=== PATIENT | male | born 1945 | race Hispanic/Latino ===

== ENCOUNTER 2017-10-05 09:30 | Day surgery (SDC) | payer OTHER ==
[2017-10-03 15:59] VITALS: BP 111/60
[2017-10-03 15:59] LABS: BASOPHILS % (AUTO) 0.8 % (0.0-5.0); EOSINOPHILS % (AUTO) 3.2 % (0.0-8.0); LYMPHOCYTES % (AUTO) 29.5 % (21.0-51.0); MEAN CORPUSCULAR HEMOGLOBIN 32.1 pg (27.0-33.0); MEAN CORPUSCULAR HGB CONC 33.1 g/dL (32.0-36.0); MONOCYTES % (AUTO) 8.5 % (3.0-13.0); PLATELET COUNT (AUTO) 240 K/uL (130-400); RED BLOOD CELL COUNT(AUTO) 4.53 MIL/uL (4.50-6.20); RED CELL DISTRIBUTION WIDTH 14.4 % (11.0-15.5); WHITE BLOOD COUNT (AUTO) 5.5 K/uL (4.8-10.8)
[2017-10-03 16:10] LABS: CREATININE 1.1 mg/dL (0.5-1.5); POTASSIUM 4.9 mmol/L (3.5-5.1)
[2017-10-03 16:13] LABS: INR 1.04 (0.85-1.15); PARTIAL THROMBOPLASTIN TIME 27.3 SEC (26.3-35.5); PROTHROMBIN TIME 10.9 SEC (9.6-11.6)
[2017-10-05] VITALS (15 sets, daily range): BP systolic 114–141; BP diastolic 70–82
[~2017-10-05] VITALS: Ht 172.7 cm; Wt 79.8 kg
[~2017-10-05 09:30] MED LIST: AEC81 PO; ALBU6.7H IH; ATOR40TA69 PO; BUDE10.2 IH; CEFUROXIME SODIUM 1.5 GM VIAL IVP SCH; FURO20TA4 PO; GLIP5TAB11 PO; METO-408 PO; TIOT4MIS5 IH; WATER FOR INJECTION,STERILE 20 ML VIAL IJ SCH
[2017-10-05] MEDS ORDERED: SODIUM CHLORIDE 0.9% 1000ML 1,000 ML IV ONE (10:56)
[2017-10-05] MEDS ORDERED: CEPH500T PO (12:04)
[2017-10-05] MEDS ORDERED: MIDAZOLAM HCL 1 MG/ML 2ML VIAL ONE (13:12)
[2017-10-05] MEDS ORDERED: FENTANYL CITRATE PF 50 MCG/1 ML 2ML VIAL ONE (13:12)
[2017-10-05] MEDS ORDERED: BUPIVACAINE/PF 0.5% 30ML VIAL ONE (13:14)
[2017-10-05] MEDS ORDERED: EPHEDRINE SULFATE 50 MG/ML AMPULE ONE (13:48)
[2017-10-05] MEDS ORDERED: LIDOCAINE HCL 1% 20 ML VIAL ONE (13:54)
== END 2017-10-05 16:15 | disposition home or self-care (01) ==
LOC: DAH 09:30 → SUH 09:30
PROVIDERS: ATTEND Thoracic Surgery (Cardiothoracic Vascular Surgery)
DX: Z47.2 Encounter for removal of internal fixation device (principal); I25.10 Atherosclerotic heart disease of native coronary artery without angina pectoris; I10 Essential (primary) hypertension; E11.9 Type 2 diabetes mellitus without complications; J44.9 Chronic obstructive pulmonary disease, unspecified; I73.9 Peripheral vascular disease, unspecified; Z79.82 Long term (current) use of aspirin; Z88.8 Allergy status to other drugs, medicaments and biological substances; F17.210 Nicotine dependence, cigarettes, uncomplicated; Z98.890 Other specified postprocedural states; Z98.61 Coronary angioplasty status
CPT/HCPCS: 20680; 36415; 71010; 80048; 82948 ×2; 85025; 85610; 85730; 86850; 86900; 86901; 86922; 88300; 93005; A6219; J0697; J2250; J3010; J3490 ×2; J7030

== ENCOUNTER → 2020-07-10 | Outpatient (CLI) | payer OTHER ==
[~2020-07-10] MED LIST changes: -ALBU6.7H IH; +ALBU6.7H9 IH; -CEFUROXIME SODIUM 1.5 GM VIAL IVP SCH; +CEPH500T PO; -WATER FOR INJECTION,STERILE 20 ML VIAL IJ SCH
== END | disposition home or self-care (01) ==
LOC: SHCH 10:26
PROVIDERS: ATTEND Internal Medicine Cardiovascular Disease
DX: I34.0 Nonrheumatic mitral (valve) insufficiency (principal); R06.00 Dyspnea, unspecified; I51.7 Cardiomegaly
CPT/HCPCS: 93306; 93356

== ENCOUNTER 2020-09-16 07:16 | Day surgery (SDC) | payer OTHER ==
[2020-09-12 14:40] VITALS: BP 111/57
[2020-09-12 14:56] LABS: BASOPHILS % (AUTO) 0.7 % (0.0-5.0); EOSINOPHILS % (AUTO) 2.6 % (0.0-8.0); HEMATOCRIT 41.4 % (42-54); LYMPHOCYTES % (AUTO) 28.5 % (21.0-51.0); MEAN CORPUSCULAR HEMOGLOBIN 31.6 pg (27.0-33.0); MEAN CORPUSCULAR HGB CONC 32.9 g/dL (32.0-36.0); MEAN CORPUSCULAR VOLUME 96.1 fL (79-99); MONOCYTES % (AUTO) 8.4 % (3.0-13.0); NEUTROPHILS % (AUTO) 59.5 % (40.0-77.0); PLATELET COUNT (AUTO) 259 K/uL (130-400); RED BLOOD CELL COUNT(AUTO) 4.31 MIL/uL (4.50-6.20); RED CELL DISTRIBUTION WIDTH 13.5 % (11.0-15.5); WHITE BLOOD COUNT (AUTO) 7.2 K/uL (4.8-10.8)
[2020-09-12 15:04] LABS: CREATININE 0.9 mg/dL (0.5-1.5); POTASSIUM 4.5 mmol/L (3.5-5.1)
[2020-09-12 15:08] LABS: INR 0.96 (0.85-1.15); PARTIAL THROMBOPLASTIN TIME 25.7 SEC (26.3-35.5); PROTHROMBIN TIME 10.4 SEC (9.6-11.6)
[2020-09-16] VITALS (11 sets, daily range): BP systolic 96–119; BP diastolic 51–67
[~2020-09-16] VITALS: Ht 175.3 cm; Wt 71.6 kg
[~2020-09-16 07:16] MED LIST changes: +AMLO-257 PO; +AUD IH; -CEPH500T PO; +CLOP75TA32 PO; -FURO20TA4 PO; +METF-446 PO
[2020-09-16] MEDS ORDERED: SODIUM CHLORIDE 0.9% 1000ML 1,000 ML IV SCH (08:00)
[2020-09-16] MEDS ORDERED: OLOD4MIS2 IH (09:46)
[2020-09-16] MEDS ORDERED: MOME13HF2 IH (09:46)
[2020-09-16] MEDS ORDERED: ALBUHFA IH (09:47)
[2020-09-16] MEDS ORDERED: MIDAZOLAM HCL 1 MG/ML 2ML VIAL ONE ×2 (12:37→13:19)
[2020-09-16] MEDS ORDERED: BUPIVACAINE/PF 0.25% 30ML VIAL IJ ONE (12:37)
[2020-09-16] MEDS ORDERED: MEPERIDINE-PF 25 MG/ML SYG ONE ×2 (12:37→13:19)
[2020-09-16] MEDS ORDERED: CEFAZOLIN SODIUM 1 GM VIAL ONE (12:37)
[2020-09-16] MEDS ORDERED: LIDOCAINE HCL 1% MDV 50ML VIAL ONE (12:38)
[2020-09-16] MEDS ORDERED: ACETAMINOPHEN-CODEINE 300/30MG TAB PO PRN (14:15)
[2020-09-16] MEDS ORDERED: DEXTROSE 50%-WATER 50 ML DISP.SYRIN IV PRN (14:15)
--- NOTE | 2020-09-16 14:40 | NUR ---
Pt received Pt received from clinical laboratory science professor via bed accompanied by PETER Borges. Pt awake and alert with pressure dressing applied to left upper chest area dry and intact; no bleeding no hematoma notes. Denies any pain. Orders reviewed. Ice pack applied to site as ordered. at bedside. questioning monitoring device. ear mold laboratory technician was called and [employer] rep Kaur came in to speak to pt and . Dietary tray ordered. Call light left within reach. Will continue to monitor
--- NOTE | 2020-09-16 15:40 | NUR ---
Pt assessed Pt sleeping comfortably at this time. Continues with sling to left arm with ice pack to left upper chest area. Has pressure dressing in place; no bleeding no hematoma noted to area. continues at bedside. VS wnl.
[2020-09-16] MEDS ORDERED: INSULIN HUMULIN R 100 UNIT/ML 3ML SQ SCH (16:30)
--- NOTE | 2020-09-16 16:48 | NUR ---
Pt resting Pt resting comfortably. Continues with left arm in sling with dressing dry and intact. is at side. Ice pack continues to surgical site. Pt denies any pain. Sleeps at intervals. VS wnl. Call light within reach.
[2020-09-16] MEDS ORDERED: CEFAZOLIN SODIUM 1 GM VIAL IVP ONE (19:00)
--- NOTE | 2020-09-16 19:19 | NUR ---
Med adm. Pt awake and alert in bed; states no pain; feeling fine, wanting to go home. at bedside. Ice pack removed. Continues with sling to left arm and pressure dressing in place dry and intact. No bleeding, no hematoma noted. Ancef 1gm IV infused; pt tolerated well with no adverse reactions. Awaiting radiology for chest xray.
--- NOTE | 2020-09-16 21:45 | NUR ---
Pt discharged home, tolerating fluids/solids, ambulating at baseline, denies any severe pain, nausea or dizziness. Pressure dressing to left chest removed. Dressing remains clean, dry and intact with very minimal light red blood on gauze. Pt reminded to leave opsite dressing in place until seen at MD office visit. Pt assisted in dressing and demonstrated how to apply sling. Pt reminded not to lift left arm above shoulder level. Pt and spouse report no further questions at this time. Addendum: 09/16/20 at 2226 by JAIME TAM RN RN Please noted that prior to discharging pt home, x-ray report was faxed from radiology and no pneumothorax or any other abnormal results related to the AICD insertion were noted.
== END 2020-09-16 21:45 | disposition home or self-care (01) ==
LOC: DAH 07:16
PROVIDERS: ATTEND Internal Medicine Cardiovascular Disease
DX: I25.5 Ischemic cardiomyopathy (principal); I11.0 Hypertensive heart disease with heart failure; I50.42 Chronic combined systolic (congestive) and diastolic (congestive) heart failure; E78.5 Hyperlipidemia, unspecified; E11.9 Type 2 diabetes mellitus without complications; I25.10 Atherosclerotic heart disease of native coronary artery without angina pectoris; F17.200 Nicotine dependence, unspecified, uncomplicated; Z79.84 Long term (current) use of oral hypoglycemic drugs; Z79.899 Other long term (current) drug therapy; Z95.1 Presence of aortocoronary bypass graft; Z79.82 Long term (current) use of aspirin; Z88.8 Allergy status to other drugs, medicaments and biological substances; Z79.01 Long term (current) use of anticoagulants; Z98.890 Other specified postprocedural states
CPT/HCPCS: 33249; 36415; 71045; 80048; 82948 ×2; 85025; 85610; 85730; 93005; A4215; A4216; A4221; A4222; A4223 ×3; A4606; A4663; C1722; C1894; C1895; J0690 ×2; J2175 ×2; J2250 ×2; J3490 ×2; J7030 ×2; 99156; 99157

== ENCOUNTER → 2021-02-17 | Outpatient (CLI) | payer OTHER ==
[~2021-02-17] MED LIST changes: -ALBU6.7H9 IH; +ALBUHFA IH; -BUDE10.2 IH; +MOME13HF2 IH; +OLOD4MIS2 IH; -TIOT4MIS5 IH
== END | disposition home or self-care (01) ==
LOC: SHCH 13:54
PROVIDERS: ATTEND Internal Medicine Cardiovascular Disease
DX: I10 Essential (primary) hypertension (principal); I25.10 Atherosclerotic heart disease of native coronary artery without angina pectoris; I73.9 Peripheral vascular disease, unspecified; I65.23 Occlusion and stenosis of bilateral carotid arteries
CPT/HCPCS: 93880; 93925

== ENCOUNTER → 2023-03-15 | Outpatient (CLI) | payer OTHER ==
[~2023-03-15] MED LIST changes: +MOME13HF12 IH; -MOME13HF2 IH
== END | disposition home or self-care (01) ==
LOC: SHCH 10:22
PROVIDERS: ATTEND Internal Medicine Cardiovascular Disease
DX: I25.5 Ischemic cardiomyopathy (principal); I11.9 Hypertensive heart disease without heart failure; E11.9 Type 2 diabetes mellitus without complications; E78.5 Hyperlipidemia, unspecified
CPT/HCPCS: 93306

== ENCOUNTER → 2023-05-24 | Outpatient (CLI) | payer OTHER | END | disposition home or self-care (01) | LOC: SHCH 08:48 | PROVIDERS: ATTEND Internal Medicine Cardiovascular Disease | DX: I65.23 Occlusion and stenosis of bilateral carotid arteries (principal) | CPT/HCPCS: 93880 ==

== ENCOUNTER → 2023-06-16 | Outpatient (CLI) | payer OTHER ==
[~2023-06-16] MED LIST changes: +IOHEXOL 350 MG/ML 100ML INFUS..BTL IV ONE; +IOHEXOL-350 50ML VIAL IV ONE
== END | disposition home or self-care (01) ==
LOC: EDSTATUS 11:30 → RAH 11:44
PROVIDERS: ATTEND Internal Medicine Cardiovascular Disease
DX: I70.203 Unspecified atherosclerosis of native arteries of extremities, bilateral legs (principal); I71.40 Abdominal aortic aneurysm, without rupture, unspecified; N28.1 Cyst of kidney, acquired; I70.0 Atherosclerosis of aorta; I70.8 Atherosclerosis of other arteries
CPT/HCPCS: 75635; Q9967 ×2

== ENCOUNTER → 2024-01-28 | Outpatient (CLI) | payer OTHER ==
[~2024-01-28] MED LIST changes: -GLIP5TAB11 PO; +GLIP5TAB15 PO; -IOHEXOL 350 MG/ML 100ML INFUS..BTL IV ONE; -IOHEXOL-350 50ML VIAL IV ONE
== END | disposition home or self-care (01) ==
LOC: SHCH 10:09
PROVIDERS: ATTEND Internal Medicine Cardiovascular Disease
DX: I08.3 Combined rheumatic disorders of mitral, aortic and tricuspid valves (principal); I27.20 Pulmonary hypertension, unspecified; I25.5 Ischemic cardiomyopathy; Q21.12 Patent foramen ovale; I25.10 Atherosclerotic heart disease of native coronary artery without angina pectoris
CPT/HCPCS: 93306

== ENCOUNTER 2025-10-04 11:58 | Emergency (ER) | payer OTHER ==
[~2025-10-04] VITALS: Ht 180.3 cm; Wt 61.2 kg
[2025-10-04 12:00] VITALS: TEMP 97.9
--- NOTE | 2025-10-04 12:00 | NUR ---
PT JUST PLACED IN ED BED 11
[2025-10-04 12:19] LABS: NUCLEATED RED BLOOD CELLS 0.0 % (0.0-0.19); PLATELET COUNT (AUTO) 570.0 K/uL (130-400); RED BLOOD CELL COUNT(AUTO) 4.52 MIL/uL (4.50-6.20); RED CELL DISTRIBUTION WIDTH 13.8 % (11.0-15.5); WHITE BLOOD COUNT (AUTO) 12.3 K/uL (4.8-10.8)
[2025-10-04 12:33] LABS: CREATININE 1.2 mg/dL (0.5-1.3); GLOMERULAR FILTR. RATE CALC 62.0 mL/min (>90); GLUCOSE,RANDOM 127.0 mg/dL (70-105); SODIUM SERUM 135.0 mmol/L (136-145); UREA NITROGEN, BLOOD 26.0 mg/dL (7-18)
--- NOTE | 2025-10-04 12:40 | NUR ---
PT PROVIDED W/A URINAL
--- NOTE | 2025-10-04 13:25 | NUR ---
URINE WAS COLLECTED, LABELED AND SENT TO LAB
[2025-10-04 13:33] LABS: APPEARANCE,URINE CLEAR (CLEAR); GLUCOSE, URINE (UA) NEGATIVE (NEGATIVE); LEUKOCYTE ESTERASE ,URINE NEGATIVE Leu/uL (NEGATIVE); NITRATE,URINE NEGATIVE (NEGATIVE); OCCULT BLOOD,URINE NEGATIVE (NEGATIVE)
[2025-10-04 13:42] LABS: OTHER CASTS, URINE 1 /LPF (None Seen); SQUAMOUS EPITHELIAL CELL,UR RARE /HPF (0-2)
--- NOTE | 2025-10-04 13:58 | NUR ---
BLADDER SCAN 1005MLS OF URINE
--- NOTE | 2025-10-04 14:17 | ERN ---
General Chief Complaint: Urinary Retention Stated Complaint: URINARY RETENTION Time Seen by MD: 12:08 Source: patient History of Present Illness Initial Comments Patient is a 79-year-old male coming in due to urine retention. Per patient this has been ongoing for a couple of days. He states he is able to void very little but is here for further evaluation. Allergies: Coded Allergies: losartan (Unverified Allergy, Severe, 10/03/17) SWOLLEN LIP niacin (Unverified Allergy, Unknown, 10/03/17) Home Meds Reported Medications Albuterol Sulfate (Ventolin Hfa/Proventil Hfa/Proair Hfa) 90 Mcg/Puff Puff, 90 MCG IH AD, INHALER 09/16/20 Olodaterol HCl (Striverdi Respimat) 4 Gm Mist.inhal, 4 GM IH AD 09/16/20 Mometasone/Formoterol (Dulera 100 Mcg/5 Mcg Inhaler) 13 Gm Hfa.aer.ad, 100 GM IH AD 09/16/20 Albuterol Sulfate (Albuterol Sulfate) 2.5 Mg/0.5 Ml Vial.neb, 2.5 MG IH BID, INH 09/15/20 Clopidogrel Bisulfate (Clopidogrel) 75 Mg Tablet, 75 MG PO AM, TAB 09/15/20 Metformin HCl (Metformin HCl) 1,000 Mg Tablet, 1000 MG PO BID, TAB 09/15/20 Amlodipine Besylate (Amlodipine Besylate) 5 Mg Tablet, 5 MG PO AM, TAB 09/15/20 Atorvastatin Calcium (LIPITOR) 40 Mg Tablet, 40 MG PO HS, TAB 10/03/17 Glipizide (Glipizide) 5 Mg Tablet, 5 MG PO BID, TAB 10/03/17 Metoprolol Succinate (Metoprolol Succinate) 25 Mg Tab.er.24h, 25 MG PO DAILY, TAB 10/03/17 Aspirin (ASPIRIN 81 MG ECTAB) 81 Mg Ectab, 81 MG PO AM, TAB.EC 10/03/17 Past Medical History Past Medical History: Diabetes-Type II Past Surgical History: CABG ROS Dictation CONSTITUTIONAL: No chills, no fever, no weakness, no diaphoresis, no malaise. HEAD/FACE: No signs of trauma. EENT: No eye pain, no blurred vision, no tearing, no double vision, no ear pain, no ear discharge, no nose pain, no nasal congestion, no throat pain, no throat swelling, no mouth pain. RESPIRATORY: No cough, no orthopnea, no SOB, no stridor, no wheezing. CARDIOVASCULAR: No chest pain, no edema, no palpitations, no syncope. GASTROINTESTINAL/ABDOMINAL: abdominal pain, no constipation, no diarrhea, no nausea, no vomiting. GENITOURINARY: No abnormal discharge, no dysuria, no frequent urination, no hematuria. No complaints of pain in the genitals. MUSCULOSKELETAL: No back pain, no gout, no joint pain, no joint swelling, no muscle pain, no muscle stiffness, no neck pain. INTEGUMENTARY: No change in color, no change in hair/nails, no dryness, no lesion, no lumps, no rash. NEUROLOGICAL/PSYCH: No anxiety, not depressed, no emotional problem, no headache, no numbness, no pre-existing deficit, no history of seizures, no tremors, no weakness. HEMATOLOGIC/LYMPHATIC: Not anemic, no history of blood clots, no apparent bleeding, no bruising, glands not swollen. All Systems Negative, Except as Noted. Physical Exam Physical Exam Dictation VITAL SIGNS: Reviewed. GENERAL APPEARANCE: Alert, oriented x3, no acute distress, obese. HEAD AND FACE: Non-traumatic. EYES: PERRL, pink conjunctivas, eyelid no trauma, anterior chamber clear. EARS: Pinnas intact and no signs of trauma or erythema. Ear canals clear and no discharge. TMs no erythema. NOSE: No discharge, no bleeding. OROPHARYNX: Mouth normal, teeth no caries, tongue pink. Pharynx clear, no erythema. Tonsils no exudates, no abscesses noted. Mucous membrane moist. NECK: Supple, non-tender, no thyromegaly, no masses, no JVD, no bruits. BREAST: Deferred. CHEST: No tenderness, no crepitus, no paradoxical movement, no retractions. LUNGS: Clear, well-ventilated, symmetric, no rales, no wheezing, no rhonchi, no stridor, good breath sounds bilaterally. HEART: Regular rate, regular rhythm, no murmur, no gallops. VASCULAR: No peripheral edema. ABDOMEN: Soft, positive bowel sounds, nondistended, no guarding, nontender, no rebound, no masses no hepatomegaly, no splenomegaly, no Wei's sign, no hernias. RECTAL: Deferred. GENITAL: Deferred. NEUROLOGICAL: Normal speech, gross motor function intact, gross sensory function intact. MUSCULOSKELETAL: Neck nontender, full range of motion, back nontender, full range of motion. EXTREMITIES: Nontender, full range of motion. SKIN: Color pink, dry, no turgor, no rash, no lacerations, no abrasions, no contusions. LYMPHATICS: Deferred. Results Laboratory and Microbiology Lab and Micro Result Laboratory Tests Test 10/04/25 12:14 10/04/25 13:20 White Blood Count 12.3 K/uL (4.8-10.8) H Red Blood Count 4.52 MIL/uL (4.50-6.20) Hemoglobin 13.9 g/dL (14.0-18.0) L Hematocrit 42.7 % (42-54) Mean Corpuscular Volume 94.5 fL (79-99) Mean Corpuscular Hemoglobin 30.8 pg (27.0-33.0) Mean Corpuscular Hemoglobin Concent 32.6 g/dL (32.0-36.0) Red Cell Distribution Width 13.8 % (11.0-15.5) Platelet Count 570 K/uL (130-400) H Mean Platelet Volume 8.6 fL (7.5-10.5) Nucleated Red Blood Cells 0.0 % (0.0-0.19) Sodium Level 135 mmol/L (136-145) L Potassium Level 5.0 mmol/L (3.5-5.1) Chloride Level 101 mmol/L (101-111) Carbon Dioxide Level 26 mmol/L (21-32) Blood Urea Nitrogen 26 mg/dL (7-18) H Creatinine 1.2 mg/dL (0.5-1.3) Glomerular Filtration Rate Calc 62 mL/min (>90) Random Glucose 127 mg/dL (70-105) H Total Calcium 9.3 mg/dL (8.5-10.1) Urine Color YELLOW (YELLOW) Urine Appearance CLEAR (CLEAR) Urine pH 6.0 (5.0-8.0) Urine Specific [place] 1.017 (1.001-1.031) Urine Protein NEGATIVE mg/dL (NEGATIVE) Urine Glucose (UA) NEGATIVE mg/dL (NEGATIVE) Urine Ketones 5 mg/dL (NEGATIVE) H Urine Occult Blood NEGATIVE (NEGATIVE) Urine Nitrate NEGATIVE (NEGATIVE) Urine Bilirubin NEGATIVE mg/dL (NEGATIVE) Urine Urobilinogen 0.2 mg/dL (0.2-1.0) Urine Leukocyte Esterase NEGATIVE Tate/uL Urine RBC 0-1 /HPF (0-1) Urine WBC 2-5 /HPF (0-1) H Urine Squamous Epithelial Cells RARE /HPF (0-2) Urine Bacteria None /HPF (None Seen) Urine Other Casts 1 /LPF (None Seen) Labs Reviewed?: Yes MDM MDM: Differential diagnosis: Urine retention, UTI, Rationale: Tests considered and ordered secondary to shared decision making include: Previous outside records reviewed: Old ER visits. Risk of complication and/or morbidity or mortality of patient management: None Medications-Per medication reconciliation Need for hospitalization: Patient does not meet criteria for hospitalization. Need for emergency major/minor surgery: No Patient is a 79-year-old gentleman coming in to the urine retention. Bladder scan did show 1000 mL of urine in the bladder. Patient was not able to void so a Graves catheter was placed. Patient will be discharged with a Graves catheter in place I did advised him appropriate follow up be with urologist for ongoing evaluation and management. Patient's symptoms subsided with urine Graves catheter in place. ED Course Orders Procedure Category Date Status Time Cbc Without LAB 10/04/25 Complete Differential 12:08 Basic Metabolic Panel LAB 10/04/25 Complete 12:08 Urinalysis LAB 10/04/25 Complete W/Microscopic 12:08 Vital Signs Date Time Temp Pulse Resp B/P (MAP) Pulse Ox O2 Delivery O2 Flow Rate FiO2 10/04/25 12:00 97.9 79 20 159/60 99 Room Air DX & DISP Disposition: Discharge Departure Impression: Primary Impression: Urine retention Additional Impression: Graves catheter in place Condition: Stable Additional Instructions: FOLLOW-UP WITH PRIMARY CARE PROVIDER IN 1 TO 2 DAYS. TAKE MEDICATIONS DIRECTED HERE IN THE EMERGENCY ROOM. OKAY TO CONTINUE HOME MEDICATIONS UNLESS OTHERWISE DISCUSSED DURING YOUR VISIT IN THE EMERGENCY ROOM TODAY. RETURN TO YOUR NEAREST EMERGENCY ROOM IF SYMPTOMS WORSEN OR IF THERE IS NO IMPROVEMENT. CALL 911 IF YOU NEED IMMEDIATE ASSISTANCE. TAKE TYLENOL [id number] NEEDED AND IF NO CONTRAINDICATIONS ARE PRESENT. INCREASE ORAL HYDRATION. A WOUND CULTURE OR URINE CULTURE WAS ORDERED HERE IN THE EMERGENCY ROOM DEPARTMENT PLEASE FOLLOW-UP WITH PRIMARY CARE PROVIDER AND ADVISE THEM TO GET REPORTS FROM OUR FACILITY. IF YOU HAD ANY ISHAN WRAP/SPLINTS THAT WERE APPLIED HERE, PLEASE DO NOT REMOVE THEM UNTIL YOU SEE YOUR PRIMARY CARE OR SPECIALTY. Referrals: Referrals: ARPIT BARROS (PCP) MIGNON RANDOLPH MD Time of Disposition: 14:16 BEAU LOPEZ MD Oct 04, 2025 14:17
[2025-10-04 15:32] VITALS: BP 116/66; PULSE 86; RESP 16; O2SAT 96
== END 2025-10-04 15:33 | disposition home or self-care (01) ==
LOC: EDH 11:58
DX: R33.9 Retention of urine, unspecified (principal); E11.9 Type 2 diabetes mellitus without complications; Z79.899 Other long term (current) drug therapy; Z88.8 Allergy status to other drugs, medicaments and biological substances; Z88.1 Allergy status to other antibiotic agents; Z79.84 Long term (current) use of oral hypoglycemic drugs; Z79.51 Long term (current) use of inhaled steroids; Z95.1 Presence of aortocoronary bypass graft
CPT/HCPCS: 36415; 51702; 80048; 81001; 85027; 99284